=== PATIENT | female | born 1945 | race Asian ===

== ENCOUNTER → 2017-03-29 | Outpatient (CLI) | payer BC | END | disposition home or self-care (01) | LOC: RADMN 16:21 | PROVIDERS: ATTEND Internal Medicine | DX: M17.0 Bilateral primary osteoarthritis of knee (principal); M85.88 Other specified disorders of bone density and structure, other site ==

== ENCOUNTER → 2017-10-11 | Outpatient (CLI) | payer BC, MEDICARE | END | disposition home or self-care (01) | LOC: RADPV 12:14 | PROVIDERS: ATTEND Internal Medicine | DX: M25.521 Pain in right elbow (principal); M17.0 Bilateral primary osteoarthritis of knee ==

== ENCOUNTER → 2018-01-16 | Outpatient (CLI) | payer BC, MEDICARE | END | disposition home or self-care (01) | LOC: RADPV 11:52 | PROVIDERS: ATTEND Internal Medicine | DX: I70.0 Atherosclerosis of aorta (principal); R91.8 Other nonspecific abnormal finding of lung field ==